=== PATIENT | female | born 1955 | race Caucasian/White ===

== ENCOUNTER 2016-05-09 08:00 | Outpatient (CLI) | payer MEDICARE, MEDICAID ==
[2016-05-09] VITALS (8 sets, daily range): BP systolic 127–140; BP diastolic 47–75; PULSE 74–83; TEMP 97.9
[~2016-05-09] VITALS: Ht 160 cm; Wt 80.9 kg
[~2016-05-09 08:00] MED LIST: AMOXICILLIN 8751 TAB PO; AMOXICILLIN/CLA1 TA1 PO; ANTI-DIARRHEAL2 MG PO; ASPIRIN 81M81 MG/TA2 PO; ASPIRIN E.C. 8181 MG PO; ATIVAN1 MG PO; CAL-CITRATE PLU1 TAB PO; CALCIJEX I1 MCG/1 ML IV; CALCIUM 600 W/V1 TAB PO; CELEXA40 MG PO; CLARITIN 1010 MG/TAB PO; COLACE 100100 MG/CAP PO; COLACE100 MG PO; DEPAKOTE ER 50500 MG PO; DEPAKOTE500 MG PO; DIOVAN320 MG PO; DULCOLAX100 MG PO; DUO-KAPS1 CAP PO; ENTOCORT EC3 MG PO; EPA-CON500 MG PO; EPO IV; EPOGEN 2,002 MU/VIA1 IV; EPOGEN3000 U/ML IJ; EPOGEN3000 U/ML IV; FERROUS GL325 MG/TA1 PO; FERROUS SU325 MG/TAB PO; FIORICET 325 MG1 TA1 PO; FOLIC ACID 11 MG/TA1 PO; FOLIC ACID800 MCG PO; IMITREX 6M6 MG/0.5 M IM; IMITREX 6M6 MG/0.5 M SQ; IMITREX25 MG PO; IMODIUM 2MG CAPS2 MG PO; KAYEXALATE15 GM/60 M PO; LEVAQUIN 5500 MG/TA1 PO; MAG-G500 MG PO; MAG-OX 400400 MG PO; MAG-OX 400400 MG/TAB PO; MAGNESIUM OXID420 MG PO; MEXILETINE150 MG PO; MEXITIL 150MG150 MG PO; MIRALAX PA17 GM/Dose PO; MIRAPEX0.25 MG PO; NAPROXEN250 MG PO; NEO SYNEPHRINE NS; NEPHROCAP PO; NEURONTIN100 MG/CAP PO; NEXIUM PO; NORCO 325 MG-51 TAB PO; NORVASC 5MG5 MG/TAB PO; PATANOL OPHTHALM5 ML OU; PHENERGAN 25 TA25 MG PO; PRIL40 PO; PRILOSEC 20MG20 MG PO; PROAIR HFA0.09 MG/AC IH; PROVENTIL0.09 MG/A1 IH; QUESTRAN LI4 GM/5 GM PO; QUESTRAN LITE 41 PKT PO; QUESTRAN4 GM/9 GM PO; REGLAN 10MG10 MG/TAB PO; RENA-VITE1 TAB PO; RENVELA800 MG PO; ROCALTROL0.5 MCG PO; SENSIPAR30 MG PO; SENSIPAR60 MG PO; TESSALON P100 MG/CAP PO; TOPROL XL 25MG25 MG PO; TOPROL XL100 MG PO; TUMS500 MG PO; TYLENOL 325MG325 MG PO; TYLENOL 500MG500 MG PO; TYLENOL EXTRA500 M1 PO; ULTRAM 50MG TAB50 MG PO; VITAMIN C500 MG PO; VITAMIN D 400400 IU PO; VITAMIN D31000 I1 PO; XANAX 0.5MG0.5 MG PO; ZANAFLEX4 M1 PO; ZOCOR 40MG40 MG PO; ZOFRAN 4MG T4 MG/TAB PO; ZOLOFT 50MG50 MG PO; [UNRECOGNIZED DRUG - CODE] PO; [UNRECOGNIZED DRUG - CODE] SQ
[2016-05-09] MEDS ORDERED: ULTRAM 50MG TAB50 MG PO (09:29)
[2016-05-09] MEDS ORDERED: [UNRECOGNIZED DRUG - CODE] PO (09:30)
[2016-05-09] MEDS ORDERED: ARANESP0.06 MG/ML SQ (09:31)
== END 2016-05-09 13:46 | disposition home or self-care (01) ==
LOC: COL.RAD 08:00
DX: N18.6 End stage renal disease (principal)
CPT/HCPCS: J2250; J3010; Q9967

== ENCOUNTER 2016-08-15 08:09 | Outpatient (CLI) | payer MEDICARE, MEDICAID ==
[~2016-08-15] VITALS: Ht 160.1 cm; Wt 79.6 kg
[2016-08-15] VITALS (13 sets, daily range): BP systolic 102–162; BP diastolic 55–104; PULSE 31–95; TEMP 97.4
[~2016-08-15 08:09] MED LIST changes: +ARANESP0.06 MG/ML SQ
[2016-08-15] MEDS ORDERED: TYLENOL W/COD1 UDTAB PO (09:06)
== END 2016-08-15 15:05 | disposition home or self-care (01) ==
LOC: EUO 08:09
DX: N18.6 End stage renal disease (principal); Z99.2 Dependence on renal dialysis
CPT/HCPCS: J2250; J3010; J7120; Q9967

== ENCOUNTER → 2016-11-07 | Outpatient (CLI) | payer MEDICARE, MEDICAID ==
[~2016-11-07] MED LIST changes: +TYLENOL W/COD1 UDTAB PO
== END ==
LOC: ZCOL.LAB 14:20
DX: Z11.2 Encounter for screening for other bacterial diseases (principal)

== ENCOUNTER 2017-02-20 09:24 | Outpatient (CLI) | payer MEDICARE, MEDICAID ==
[2017-02-20] VITALS (8 sets, daily range): BP systolic 127–153; BP diastolic 65–89; PULSE 75–84; TEMP 98.6
[~2017-02-20] VITALS: Ht 160.1 cm; Wt 76.6 kg
[2017-02-20] MEDS ORDERED: ZYRTEC5 MG PO (10:10)
[2017-02-20] MEDS ORDERED: TOPROL XL 50MG50 MG PO (10:14)
[2017-02-20] MEDS ORDERED: NORCO 325 MG-7.1 TAB PO (10:16)
[2017-02-20] MEDS ORDERED: ANTI-DIARRHEAL2 MG PO (10:17)
[2017-02-20] MEDS ORDERED: AMBIEN 5MG TABLE5 MG PO (10:17)
[2017-02-20] MEDS ORDERED: ROCALTROL0.5 MCG PO (10:17)
== END 2017-02-20 14:39 | disposition home or self-care (01) ==
LOC: COL.CAR 09:24
DX: T82.898A Other specified complication of vascular prosthetic devices, implants and grafts, initial encounter (principal); N18.6 End stage renal disease
CPT/HCPCS: C1887; J2250; J3010; Q9967

== ENCOUNTER 2017-04-15 08:50 | Outpatient (CLI) | payer MEDICARE, MEDICAID ==
[~2017-04-15] VITALS: Ht 160.2 cm; Wt 76.6 kg
[~2017-04-15 08:50] MED LIST changes: +AMBIEN 5MG TABLE5 MG PO; +NORCO 325 MG-7.1 TAB PO; +TOPROL XL 50MG50 MG PO; +ZYRTEC5 MG PO
[2017-04-15] MEDS ORDERED: PHOS LO PO (09:58)
[2017-04-15 09:59] VITALS: BP 146/83; PULSE 75; TEMP 98.2
[2017-04-15 10:59] VITALS: BP 149/70; PULSE 77
[2017-04-15 11:55] VITALS: BP 138/61; PULSE 76; TEMP 98
[2017-04-15 13:03] VITALS: BP 138/61; PULSE 79; TEMP 98
== END 2017-04-15 14:30 | disposition home or self-care (01) ==
LOC: COL.CAR 08:50
DX: T82.898A Other specified complication of vascular prosthetic devices, implants and grafts, initial encounter (principal); N18.6 End stage renal disease
CPT/HCPCS: J2250; J3010; Q9967

== ENCOUNTER 2018-12-07 17:14 | Inpatient (IN) | payer MEDICARE, MEDICAID ==
[~2018-12-07] VITALS: Ht 160 cm; Wt 78.1 kg
[~2018-12-07 17:14] MED LIST changes: +PHOS LO PO
[2018-12-07 18:12] LABS: BASO % 0.5 % (0.0-2.0); EOS # 0.1 (0.0-0.7); EOS % 1.2 % (0-4.0); GRAN # 6.1 (1.4-6.5); GRAN % 72.5 % (42.2-75.2); LYMPH # 1.5 (1.2-3.4); MEAN CELL VOLUME 106 fl (80.0-100.0); MEAN CORPUSCULAR HGB CONC 31 g/dl (33.0-37.0); MEAN PLATELET VOLUME 10.7 fl (7.4-10.4); MONO # 0.6 (0.1-0.6); MONO % 7.2 % (1.7-9.3); PLATELET COUNT 202 K/mm3 (130-400); RED BLOOD COUNT 2.72 M/mm3 (4.10-5.30); REDCELL DISTRIBUTION WIDTH-CV 14.7 % (11.5-14.5)
[2018-12-07 18:16] LABS: HEMATOCRIT 28.7 % (37.0-47.0); MEAN CORPUSCULAR HEMOGLOBIN 33 pg (27.0-31.0)
[2018-12-07 18:29] LABS: ALBUMIN 4.4 gm/dL (3.5-5.0); BILIRUBIN,TOTAL 0.8 mg/dL (0.0-1.0); C-REACTIVE PROTEIN 3.2 mg/dL (0.0-0.9); CALCIUM 8.1 mg/dL (8.4-10.2); POTASSIUM 5.5 mmol/L (3.4-5.0)
[2018-12-07 18:38] LABS: CREATININE, serum 9.33 (0.52-1.25)
[2018-12-07 18:39] LABS: TROPONIN-I 0.04 ng/mL (0.000-0.035)
[2018-12-07] MEDS ORDERED: COZAAR 25MG25 MG/TAB PO (19:08)
[2018-12-07 22:18] VITALS: BP 161/87; PULSE 83; TEMP 97.5
[2018-12-08 00:23] VITALS: BP 126/61; PULSE 89; TEMP 98.6
--- NOTE | 2018-12-08 02:29 | NUR ---
Pt to Rm 317 via cart from ER. Admitted for abdominal pain, ESRD. Pt of Dr Alvarenga. C/O feeling nausea. Has been medicated in ER x2 for nausea. INT intact R AC. Has an old fistula in upper left arm. Her current fistula is in upper left thigh. Bruit present. Dr Alvarenga notifited of pt and pt current home med list.
[2018-12-08 04:33] VITALS: BP 156/87; PULSE 83; TEMP 98.5
--- NOTE | 2018-12-08 06:17 | NUR ---
Pt had Zofran 4mg IV push and Tylenol 500mg for headache. Reports some relief obtained. Rest in bed with lights out. Call light within reach.
[2018-12-08 07:31] VITALS: BP 147/84; PULSE 82; TEMP 97.9
--- NOTE | 2018-12-08 08:16 | NUR ---
Pt assessment completed and charted. Pt laying in bed. C/O abdominal pain and nausea. No vomiting per pt. C/O dizziness, SOB and legs "feeling like jello". Educated the pt on being placed as a fall risk and using call light to get up. Fall risk precautions in place. Pt has RAC INT IV, flushes with no complications. Left thigh fistula, bruising noted. Pt stated she fell about a week ago, rt elbow bruising noted. Pt on room air, denies other needs at this time.
--- NOTE | 2018-12-08 08:47 | NUR ---
Pt down for dialysis at this time.
[2018-12-08 09:49] LABS: MEAN CELL VOLUME 105 fl (80.0-100.0); MEAN CORPUSCULAR HGB CONC 32 g/dl (33.0-37.0); MEAN PLATELET VOLUME 10.4 fl (7.4-10.4); PLATELET COUNT 181 K/mm3 (130-400); RED BLOOD COUNT 2.53 M/mm3 (4.10-5.30)
[2018-12-08 09:50] LABS: HEMATOCRIT 26.5 % (37.0-47.0); HEMOGLOBIN 8.4 g/dl (12.5-16.0); MEAN CORPUSCULAR HEMOGLOBIN 33 pg (27.0-31.0)
[2018-12-08 09:55] LABS: ALBUMIN 4.2 gm/dL (3.5-5.0); CALCIUM 8.3 mg/dL (8.4-10.2); PHOSPHOROUS 2.6 mg/dL (2.5-4.5); POTASSIUM 3.6 mmol/L (3.4-5.0)
[2018-12-08 09:57] LABS: CREATININE, serum 5.32 (0.52-1.25)
[2018-12-08 10:38] LABS: EOSINOPHIL 2 % (0-4); LYMPHOCYTE 18 % (20.0-51.0); NEUTROPHILS 72 % (42.0-75.2); PLATELET ESTIMATE NORMAL (NORMAL)
[2018-12-08] MEDS ORDERED: ESTRACE0.5 MG PO (10:49)
--- NOTE | 2018-12-08 14:43 | NUR ---
CHAYITO met with the patient to discuss discharge plan. The patient lives alone in [place]. She states that she has friend support in [facility] and that her son (Walt Ponce ph#[phone]) lives in [place] and her sister Laxmi lives in [place], [place]. She reports independence with ADLs and has a cane and walker. The patient's PCP is Dr. Christopher Perea and she receives her medications at [facility]. She reports no difficulties obtaining her meds. The patient does not have advanced directives completed, but she was interested in obtaining a form for DPOA-HC. CHAYITO provided. She states that she has two children, but that she would want to designate her son, Walt. The patient plans to return back home upon discharge. No additional needs at this time, but SW to continue to follow.
--- NOTE | 2018-12-08 15:29 | NUR ---
Pt back from procedure. Morning medications administered per MAY. Pt to start bowel prep this afternoon.
[2018-12-08 16:01] VITALS: BP 170/90; PULSE 94; TEMP 98.1
--- NOTE | 2018-12-08 17:07 | NUR ---
Pt started on bowel prep for EGD/Colonoscopy tomorrow. No concerns voiced.
[2018-12-08 20:00] VITALS: BP 154/89; PULSE 93; TEMP 98.1
--- NOTE | 2018-12-08 21:36 | NUR ---
Report received from MARLENA Yuan. Patient resting in bed. States she had drank 1 jug of her bowel prep and is working on the second one. Her bowel movements are still pretty yellow but very watery. She denies pain at this time. IV flushed. She states she is a little short of breath when she gets up to use the restroom and she feels like she is getting weaker. Instructed patient she could use her call light if she felt she was too weak to get up to the restroom on her own. Encouraged to continue to drink the bowel prep and notify nursing staff if she has any further needs. Call light within reach.
--- NOTE | 2018-12-08 23:16 | NUR ---
Patient states she is feeling a little sick from the bowel prep. PRN zofran given. Will continue to monitor.
[2018-12-09] VITALS (10 sets, daily range): BP systolic 141–186; BP diastolic 71–95; PULSE 78–87; TEMP 97.7–98.5
[2018-12-09 05:24] LABS: ARTERIAL BLD GAS O2 SATURATION 94.4 % (92-100); ARTERIAL BLD GAS TCO2 CT 22.1; ARTERIAL BLOOD GAS BASE EXCESS -2.7 (-2-2); ARTERIAL BLOOD GAS HCO3 21.1 meq/L (22-26); ARTERIAL BLOOD GAS PCO2 32.2 mmHg (35-45); ARTERIAL BLOOD GAS PO2 74.3 mmHg (80-100); ARTERIAL BLOOD GAS pH 7.43 (7.35-7.45)
--- NOTE | 2018-12-09 05:49 | NUR ---
Patient had uneventful night. Resting in bed. Continuing to work on bowel prep. BM beginning to look clearer. Encouraged to keep drinking. No further needs at this time. Call light within reach.
--- NOTE | 2018-12-09 06:52 | NUR ---
Report given to MARLENA Yuan
[2018-12-09 07:22] LABS: MEAN CELL VOLUME 108 fl (80.0-100.0); MEAN CORPUSCULAR HGB CONC 32 g/dl (33.0-37.0); MEAN PLATELET VOLUME 10.8 fl (7.4-10.4); PLATELET COUNT 192 K/mm3 (130-400); RED BLOOD COUNT 2.68 M/mm3 (4.10-5.30); REDCELL DISTRIBUTION WIDTH-CV 15.6 % (11.5-14.5)
[2018-12-09 07:24] LABS: HEMATOCRIT 28.8 % (37.0-47.0); HEMOGLOBIN 9.1 g/dl (12.5-16.0); MEAN CORPUSCULAR HEMOGLOBIN 34 pg (27.0-31.0)
[2018-12-09 07:31] LABS: ALBUMIN 4.2 gm/dL (3.5-5.0); CALCIUM 8.4 mg/dL (8.4-10.2); CREATININE, serum 6.04 (0.52-1.25); PHOSPHOROUS 3.4 mg/dL (2.5-4.5); POTASSIUM 4.7 mmol/L (3.4-5.0)
--- NOTE | 2018-12-09 08:17 | NUR ---
Pt assessment completed and charted. Pt sitting in bed. C/o of abdominal discomfort d/t bowel prep. Denies nausea at this time. Denies chest pain, dizziness, SOB, N/V/D. Pt bowel prep in process, has been NPO since midnight, consent for procedure signed and on chart. Pt has RAC INT IV that flushes with no complications, minimal dried blood under tegaderm. No other concerns voiced at this time. Call light within reach.
[2018-12-09 08:30] LABS: BAND 1 % (0-10); EOSINOPHIL 2 % (0-4); LYMPHOCYTE 19 % (20.0-51.0); NEUTROPHILS 75 % (42.0-75.2); PLATELET ESTIMATE NORMAL (NORMAL)
[2018-12-09 08:31] LABS: HYPOCHROMIA 1+
--- NOTE | 2018-12-09 10:52 | NUR ---
Pt down for procedure at this time.
--- NOTE | 2018-12-09 12:17 | NUR ---
Pt back from procedure. VSS. Pt c/o abdominal pain, rating it an 8. Lunch ordered for pt, PRN tylenol administered per MAR. No other concerns at this time.
--- NOTE | 2018-12-09 13:46 | NUR ---
Pt tolerating food well. Denies needs at this time.
--- NOTE | 2018-12-09 20:37 | NUR ---
Report received from MARLENA Yuan. Patient resting in bed. Requesting night time medications. Assessment complete. Denies pain. Left sided upper lung sounds diminished, left side lower clear, and right side clear. Assessed patient diarrhea, no longer bloody as it was earlier in the day. Patient states that when she had her EGD, the tube hit her lip and there is a small noted bump on her lower lip, right side. Denies any further needs at this time. Call light within reach.
--- NOTE | 2018-12-09 22:56 | NUR ---
Patient reports not being able to sleep. She requests another ambien. Informed the patient that she could not have another ambien. She asked what else she could have. I let her know that the only other thing she has ordered for sleep is xanax. She states she would like to try that. Administered 0.5 mg of PRN xanax.
[2018-12-10] VITALS (7 sets, daily range): BP systolic 129–179; BP diastolic 63–93; PULSE 74–81; TEMP 97.7–99.5
[2018-12-10 02:50] LABS: KAPPA FREE LIGHT CHAIN-SERUM 129.38 mg/L (()); KAPPA LAMBDA RATIO 1.67 ratio (()); LAMDA FREE LIGHT CHAIN SERUM 77.49 mg/L (())
--- NOTE | 2018-12-10 05:55 | NUR ---
Patient had uneventful night. Resting in bed. Denied pain throughout night. Has no further needs at this time. Call light within reach.
--- NOTE | 2018-12-10 06:54 | NUR ---
Report given to MARLENA Wheeler
--- NOTE | 2018-12-10 08:36 | NUR ---
PT ALERT AND ORIENTED AND EATING BREAKFAST NOW. PT GOING DOWN TO DIALYSIS THIS AM. PT DENIES PAIN OR SOB AT THIS TIME. PT REPORTS FEELING WEAK IN THE LEGS. PT IS HIGH FALL RISK AND PRECAUTIONS IN PLACE. PT REMAINS ON CONTACT PRECAUTIONS FOR HX OF MRSA. PT LEFT THIGH FISTULA AND LEFT EXTREMITY RESTRICTED. PT HAS OLD FISTULA IN LEFT UPPER ARM. PT IV INTACT NO REDNESS NOTED. PT HAS CALL LIGHT IN REACH AND WILL GO TO DIALYSIS AFTER FINISHES BRKF. PT HAS [facility] HELPING THIS AM.
[2018-12-10 10:00] LABS: MEAN CORPUSCULAR HGB CONC 33 g/dl (33.0-37.0); MEAN PLATELET VOLUME 10.5 fl (7.4-10.4); PLATELET COUNT 193 K/mm3 (130-400); RED BLOOD COUNT 2.63 M/mm3 (4.10-5.30); REDCELL DISTRIBUTION WIDTH-CV 15.6 % (11.5-14.5)
[2018-12-10 10:01] LABS: HEMATOCRIT 27.1 % (37.0-47.0); HEMOGLOBIN 8.8 g/dl (12.5-16.0); MEAN CELL VOLUME 103 fl (80.0-100.0); MEAN CORPUSCULAR HEMOGLOBIN 33 pg (27.0-31.0)
[2018-12-10 10:08] LABS: ALBUMIN 3.7 gm/dL (3.5-5.0); CALCIUM 8.3 mg/dL (8.4-10.2); PHOSPHOROUS 1.8 mg/dL (2.5-4.5); POTASSIUM 3.8 mmol/L (3.4-5.0)
[2018-12-10 10:10] LABS: CREATININE, serum 4.47 (0.52-1.25)
[2018-12-10 10:27] LABS: LYMPHOCYTE 25 % (20.0-51.0); NEUTROPHILS 68 % (42.0-75.2); NUCLEATED RED BLOOD CELL 2 (0-6); PLATELET ESTIMATE NORMAL (NORMAL)
--- NOTE | 2018-12-10 14:01 | NUR ---
Pt in room eating lunch. Call margareth curry. Reported off to primary Desiree MENDIOLA.
--- NOTE | 2018-12-10 14:03 | NUR ---
Primary nurse was assisted with [phone] patient care by [employer] student Lakshmi Mckeon and [employer] instructor Renuka Espinal RN-.
--- NOTE | 2018-12-10 15:49 | NUR ---
CHAYITO met with the patient to review discharge plan and to discuss PT's recommendation of home health. The patient reports that she would be interested in home health. CHAYITO provided the patient with Medicare.gov's list of home health agencies that serve [place]. The patient chose [facility]. CHAYITO contacted and faxed a referral to Gordo at [facility]. SW awaiting their screening.
--- NOTE | 2018-12-10 18:29 | NUR ---
Pt alert and oriented. Pt went to dialysis this am and returned after lunch. Pt tolerated dialysis well and had 2K off. Pt will have dialysis tomorrow at around 1130 per Mariya. Pt IV did not flush this afternoon well so discontinued and new IV 20gauge placed in upper RAC. Pt has call light in reach and on contact precautions.
--- NOTE | 2018-12-10 18:48 | NUR ---
report given to Tamica MENDIOLA
--- NOTE | 2018-12-10 20:55 | NUR ---
Report received from MARLENA Wheeler. Patient resting in bed. Assessment complete. Patient denies pain at this time. Vitals within normal limits. Lungs CTA. IV patent. Patient inquiring about hemorroid cream that was ordered by Dr collier. Upon checking, no cream in the omni, called house to have it brought up from pharmacy. Patient okay with waiting. Denies any further needs at this time. Call light within reach.
--- NOTE | 2018-12-10 22:45 | NUR ---
Patient requests "something else to help me sleep". PRN xanax administered at this time. Informed that hemorrhoid cream still not available. Patient stated she could wait until morning. Call light within reach.
[2018-12-11 03:22] VITALS: BP 140/71; PULSE 77; TEMP 99.1
--- NOTE | 2018-12-11 05:23 | NUR ---
Patient has been resting in bed throughout shift. Denied pain. PRN xanax given to help patient sleep per patient request. No further needs at this time. Call light within reach.
[2018-12-11 06:51] LABS: BASO % 0.6 % (0.0-2.0); EOS # 0.2 (0.0-0.7); EOS % 4.5 % (0-4.0); GRAN # 3.1 (1.4-6.5); GRAN % 59.6 % (42.2-75.2); LYMPH # 1.3 (1.2-3.4); LYMPH % 25.7 % (20.0-51.0); MEAN CELL VOLUME 107 fl (80.0-100.0); MEAN CORPUSCULAR HGB CONC 32 g/dl (33.0-37.0); MEAN PLATELET VOLUME 10.7 fl (7.4-10.4); MONO # 0.4 (0.1-0.6); MONO % 8.2 % (1.7-9.3); PLATELET COUNT 190 K/mm3 (130-400); RED BLOOD COUNT 2.59 M/mm3 (4.10-5.30); REDCELL DISTRIBUTION WIDTH-CV 15.9 % (11.5-14.5)
--- NOTE | 2018-12-11 06:53 | NUR ---
Report given to MARLENA Thurman
[2018-12-11 07:00] LABS: HEMATOCRIT 27.6 % (37.0-47.0); HEMOGLOBIN 8.7 g/dl (12.5-16.0); MEAN CORPUSCULAR HEMOGLOBIN 34 pg (27.0-31.0)
[2018-12-11 07:15] LABS: ALBUMIN 3.5 gm/dL (3.5-5.0); CALCIUM 8.4 mg/dL (8.4-10.2); PHOSPHOROUS 2.6 mg/dL (2.5-4.5); POTASSIUM 4.3 mmol/L (3.4-5.0)
[2018-12-11 07:16] LABS: CREATININE, serum 4.76 (0.52-1.25)
[2018-12-11 07:23] VITALS: BP 169/78; PULSE 76; TEMP 97.9
[2018-12-11 07:56] VITALS: BP 154/83; PULSE 80; TEMP 97.9
--- NOTE | 2018-12-11 08:00 | NUR ---
PATIENT AMBULATING INDEPENDENTLY IN THE ROOM. PATIENT IS A&OX4. VSS. BOWEL SOUNDS ACTIVE ALL FOUR QUADRANTS. PATIENT IS TOLERATING HER DIET WITHOUT ANY COMPLAINTS OF N/V. PATIENT REPORTS THAT SHE HAS BEEN HAVING DIARRHEA. PATIENT STATES THAT SHE FEELS WEAK TODAY. PATIENT STATES THAT SHE HAS SHORTNESS OF BREATH, BUT THAT IT IS NOT WORSE THAN HER NORMAL. ALL LUNG MCKENNA CLEAR UPON AUSCULTATION. PATIENT DENIES A PRODUCTIVE COUGH. RIGHT AC TO INT. POSITIVE PEDAL PULSES EQUAL BILATERALLY. AV FISTULA TO LEFT THIGH. SCABBING OVER FISTULA SITE NOTED. GOOD BRUIT AND THRILL OVER AV FISTULA SITE. CALL LIGHT WITHIN REACH. PATIENT DENIES ANY NEEDS AT THIS TIME.
--- NOTE | 2018-12-11 11:30 | NUR ---
PATIENT TAKEN TO DIALYSIS VIA WHEELCHAIR BY MEDICAL STAFF. WILL WAIT FOR PATIENT ARRIVAL BACK TO ROOM 317 POST DIALYSIS.
--- NOTE | 2018-12-11 13:43 | NUR ---
Pt is down in diallysis. Reported off to Primary MARLENA Thurman.
--- NOTE | 2018-12-11 13:56 | NUR ---
Primary nurse was assisted with [phone] patient care by [employer] student Lakshmi Mckeon and [employer] instructor Renuka Espinal RN-BC.
--- NOTE | 2018-12-11 14:30 | NUR ---
PATIENT ARRIVED BACK TO ROOM 317 VIA WHEELCHAIR FROM DIALYSIS.
--- NOTE | 2018-12-11 15:32 | NUR ---
Gordo, at [facility], reports that they are unable to accept the patient if she is not homebound and drives herself to dialysis. CHAYITO then followed up with the patient to inform. The patient reports that she does drive herself to dialysis and appointments and would plan to continue to do so upon discharge. CHAYITO then discussed outpatient PT/OT. The patient reports that she will just hold off on outpatient PT/OT right now. She states that she can get around with her cane and walker. CHAYITO informed the patient about having Dr. Alvarenga write a script for outpatient PT/OT, if she changes her mind. The patient verbalized understanding. SW to continue to follow.
[2018-12-11 15:57] VITALS: BP 157/71; PULSE 79; TEMP 98.1
--- NOTE | 2018-12-11 19:01 | NUR ---
REPORT GIVEN TO MARLENA NOLEN.
[2018-12-11 19:35] VITALS: BP 152/77; PULSE 81; TEMP 98.7
--- NOTE | 2018-12-11 20:30 | NUR ---
Initial shift assessment done- denies pain tonight, had a loose/liquid stool this morning at 0700 and no stool since then-- /,not needing prn hydralazine at this time, has been up on her own today- askeed her to call for assistance during the night- pt states that she will
--- NOTE | 2018-12-11 22:00 | NUR ---
Dr Alvarenga called - pt states she takes 10mg of Ambien at night at home not just 5 mg as ordered- additional 5 mg of Ambien given p.o
[2018-12-11 23:20] VITALS: BP 161/82; PULSE 79; TEMP 98.5
[2018-12-12] VITALS (7 sets, daily range): BP systolic 131–167; BP diastolic 69–896; PULSE 76–86; TEMP 98–99.1
--- NOTE | 2018-12-12 00:35 | NUR ---
B/P 167/84- Hydralazine prn given per order- pt states still not sleeping well, waking up every frequently, requesting snack at this time
[2018-12-12 06:29] LABS: BASO % 0.6 % (0.0-2.0); EOS # 0.3 (0.0-0.7); EOS % 5.7 % (0-4.0); GRAN # 3.3 (1.4-6.5); GRAN % 60.2 % (42.2-75.2); LYMPH # 1.3 (1.2-3.4); LYMPH % 23.3 % (20.0-51.0); MEAN CELL VOLUME 108 fl (80.0-100.0); MEAN CORPUSCULAR HGB CONC 31 g/dl (33.0-37.0); MEAN PLATELET VOLUME 10.2 fl (7.4-10.4); MONO # 0.5 (0.1-0.6); MONO % 8.9 % (1.7-9.3); PLATELET COUNT 191 K/mm3 (130-400); RED BLOOD COUNT 2.65 M/mm3 (4.10-5.30); REDCELL DISTRIBUTION WIDTH-CV 16.6 % (11.5-14.5)
--- NOTE | 2018-12-12 06:30 | NUR ---
Quiet night- had hydralazine x2 for B/P during the night- no stools this shift/no abd pain, states did not sleep much
[2018-12-12 06:42] LABS: ALBUMIN 3.5 gm/dL (3.5-5.0); CALCIUM 8.4 mg/dL (8.4-10.2); PHOSPHOROUS 2.4 mg/dL (2.5-4.5); POTASSIUM 4.3 mmol/L (3.4-5.0)
[2018-12-12 06:45] LABS: CREATININE, serum 4.25 (0.52-1.25)
[2018-12-12 07:03] LABS: HEMATOCRIT 28.5 % (37.0-47.0); HEMOGLOBIN 8.9 g/dl (12.5-16.0); MEAN CORPUSCULAR HEMOGLOBIN 34 pg (27.0-31.0)
--- NOTE | 2018-12-12 09:34 | NUR ---
Pt is awake and A/Ox4, sitting up on the side of the bed. She denies pain at this time. She is up to the restroom without assistance, steady gait. Pt had soft bowel movement, brown in color. Stool for occult sent to lab. Pt denies any other needs.
--- NOTE | 2018-12-12 13:30 | NUR ---
Pt is resting in bed, watching TV and reading book. Pt denies any pain. Denies any needs.
--- NOTE | 2018-12-12 20:30 | NUR ---
Initial shift assessment done- denies pain, states had 3 soft/loose stools on day shift today- neg for occult blood,, having a snack tonight beofre bed- no other requests- hopes to sleep better tonight.
[2018-12-13 03:37] VITALS: BP 154/73; PULSE 75; TEMP 98.4
--- NOTE | 2018-12-13 05:25 | NUR ---
Quiet night- did rest somewhat better than the previous night,, VSS, did not require Hydralazine during the night, did get Tylenol for headache
[2018-12-13 07:21] VITALS: BP 160/83; PULSE 78; TEMP 98.7
--- NOTE | 2018-12-13 08:26 | NUR ---
Pt is awake and A/Ox4, sitting up in the recliner watching TV. She denies pain or discomfort. Saline lock to right AC is free of complications. Left thigh fistula noted, free of complications. Pt is up as tolerated in room. Denies any other needs.
--- NOTE | 2018-12-13 10:46 | NUR ---
Pt is sleeping soundly in bed.
[2018-12-13 10:57] VITALS: BP 166/81; PULSE 78; TEMP 97.9
--- NOTE | 2018-12-13 11:39 | NUR ---
Pt was given PRN apresonline for sys. bp of 160. Pt sitting comfortably on the side of the bed doing a word search. Denies any other needs.
[2018-12-13 15:57] VITALS: BP 164/81; PULSE 82; TEMP 98.2
--- NOTE | 2018-12-13 17:36 | NUR ---
Pt has had an uneventful day. She states she fells like she "had a burst of energy." Denies any other needs.
[2018-12-13 19:19] VITALS: BP 172/80; PULSE 78; TEMP 98.3
--- NOTE | 2018-12-13 19:35 | NUR ---
Pt up to chair. No distress noted. Respiraitons even and unlabored. Lungs clear. Abdomen soft, nontender. BS+. RANDY fistula unuseable- no bruit/thrill. L thigh fistula with bruit/thrill and strong pulses. Pt denies pain. Blood pressure is elevated- HS blood pressure medications given. No other needs noted. Will continue to monitor.
--- NOTE | 2018-12-13 21:30 | NUR ---
Pt states she is having difficulty sleeping. PRN sleeping medication given.
--- NOTE | 2018-12-13 23:55 | NUR ---
Pt continues to c/o insomnia. Scheduled Ambien and PRN Xanax were both given previously. Pt asks for another Ambien. Pt educated that she cannot take another Ambien, as it is scheduled.
[2018-12-14 01:08] VITALS: BP 177/82; PULSE 77; TEMP 98.1
--- NOTE | 2018-12-14 01:24 | NUR ---
Pts blood pressure is elevated. PRN blood pressure medication brought to patient, but she was sleeping. When awoken, she stated "I was finally sleeping" and refused to take the medication. Will continue to monitor.
[2018-12-14 03:39] VITALS: BP 157/88; PULSE 82; TEMP 98.1
--- NOTE | 2018-12-14 05:10 | NUR ---
Pt sleeping this AM. Easily arousable. Pt is confused about time of day when awoken. She states "can you order me a turkey sandwich for supper"? Easily reoriented. Pt denies pain. Blood pressure has decreased without PRN medication administration. Pt denies needs.
[2018-12-14 06:58] VITALS: BP 162/79; PULSE 77; TEMP 97.9
--- NOTE | 2018-12-14 08:00 | NUR ---
Assessment completed, alert/oriented, vital signs stable, denies pain or discomfort, heart RRR/ distal pulses are palpable, lungs CTA/ no resp.difficulty noted, she is sititng up in chair eating breakfast, will take her to dialysis as soon as she is finished
[2018-12-14 09:20] LABS: BASO % 0.5 % (0.0-2.0); EOS # 0.3 (0.0-0.7); EOS % 4.1 % (0-4.0); GRAN # 4.3 (1.4-6.5); GRAN % 70.1 % (42.2-75.2); LYMPH # 1.1 (1.2-3.4); MEAN CELL VOLUME 104 fl (80.0-100.0); MEAN CORPUSCULAR HGB CONC 33 g/dl (33.0-37.0); MEAN PLATELET VOLUME 9.9 fl (7.4-10.4); MONO # 0.4 (0.1-0.6); MONO % 6.3 % (1.7-9.3); PLATELET COUNT 182 K/mm3 (130-400); RED BLOOD COUNT 2.59 M/mm3 (4.10-5.30); REDCELL DISTRIBUTION WIDTH-CV 17.2 % (11.5-14.5)
[2018-12-14 09:21] LABS: HEMOGLOBIN 8.8 g/dl (12.5-16.0); MEAN CORPUSCULAR HEMOGLOBIN 34 pg (27.0-31.0)
[2018-12-14 09:29] LABS: ALBUMIN 3.9 gm/dL (3.5-5.0); CALCIUM 9.1 mg/dL (8.4-10.2); CREATININE, serum 3.97 (0.52-1.25); POTASSIUM 4.2 mmol/L (3.4-5.0)
[2018-12-14 09:39] LABS: PHOSPHOROUS 2.2 mg/dL (2.5-4.5)
[2018-12-14 12:05] LABS: PROTHROMBIN TIME 11.7 SECONDS (9.7-12.8)
[2018-12-14 12:32] VITALS: BP 179/76; PULSE 76; TEMP 98.2
--- NOTE | 2018-12-14 14:01 | NUR ---
CHAYITO met with the patient to check-in after the weekend. The patient reports that she is doing good and that the weekend went good, but boring. She states that Dr. Alvarenga would like to keep her for a couple more days. The patient states that she still plans to return back home upon discharge and drive herself to dialysis. The patient has Medicaid as a secondary insurance. CHAYITO educated the patient on transportation services through Medicaid. The patient reports that she already utilizes these services for when she has appointments in [facility]. CHAYITO then received a phone call from Patrizia at [facility]. Patrizia reports that they can accept the patient under her Medicaid and that Medicaid does not have the homebound rule. CHAYITO informed the patient of this. The patient would like to pursue with going home with [facility] upon discharge. CHAYITO to continue to follow.
[2018-12-14 15:45] VITALS: BP 185/84; PULSE 91; TEMP 98.3
[2018-12-14 20:04] VITALS: BP 146/79; PULSE 86; TEMP 98.1
--- NOTE | 2018-12-14 21:35 | NUR ---
Report received from MARLENA Braden. Patient resting in bed. Assessment complete. Alert and oriented. Denies pain. Lungs CTA. Pulses strong. Bowels active. Patient requests strawberry ice cream. Denies any further needs at this time. Call light within reach.
--- NOTE | 2018-12-14 23:04 | NUR ---
Patient requests something to help her sleep. PRN xanax given.
[2018-12-15 01:28] VITALS: BP 147/80; PULSE 80; TEMP 98.1
--- NOTE | 2018-12-15 01:52 | NUR ---
Shift assessment charted at this time. Completed at 2200.
[2018-12-15 03:27] VITALS: BP 160/80; PULSE 88; TEMP 98.4
--- NOTE | 2018-12-15 06:04 | NUR ---
Patient is resting in bed. Patient requested one PRN xanax to assist her with sleeping. Denied pain. Call light within reach.
[2018-12-15 06:30] LABS: BASO % 0.7 % (0.0-2.0); EOS # 0.2 (0.0-0.7); EOS % 5.1 % (0-4.0); GRAN # 2.4 (1.4-6.5); GRAN % 56.4 % (42.2-75.2); LYMPH # 1.2 (1.2-3.4); LYMPH % 27.3 % (20.0-51.0); MEAN CELL VOLUME 108 fl (80.0-100.0); MEAN CORPUSCULAR HGB CONC 32 g/dl (33.0-37.0); MEAN PLATELET VOLUME 10.2 fl (7.4-10.4); MONO # 0.4 (0.1-0.6); PLATELET COUNT 156 K/mm3 (130-400); RED BLOOD COUNT 2.53 M/mm3 (4.10-5.30); REDCELL DISTRIBUTION WIDTH-CV 17.8 % (11.5-14.5)
[2018-12-15 06:49] LABS: ALBUMIN 3.6 gm/dL (3.5-5.0); PHOSPHOROUS 3.6 mg/dL (2.5-4.5); POTASSIUM 4.9 mmol/L (3.4-5.0)
[2018-12-15 06:50] LABS: CREATININE, serum 5.23 (0.52-1.25)
--- NOTE | 2018-12-15 07:02 | NUR ---
Report given to MARLENA Anders
[2018-12-15 07:04] LABS: HEMATOCRIT 27.3 % (37.0-47.0); HEMOGLOBIN 8.6 g/dl (12.5-16.0); MEAN CORPUSCULAR HEMOGLOBIN 34 pg (27.0-31.0)
[2018-12-15 08:18] VITALS: BP 168/87; PULSE 76; TEMP 98.2
--- NOTE | 2018-12-15 08:25 | NUR ---
Pt is awake and A/Ox4, sitting up in the recliner working on a word search. Pt denies pain or discomfort. Pt does report having loose stools x3 this AM, requested PRN imodium which was given. Pts sys. blood pressure is 166 this AM. Not within 4 hour time frame for PRN apresoline. Pt up as tolerated in room. Denies any other needs. Will monitor.
[2018-12-15] MEDS ORDERED: CIPRO 500MG TA500 MG PO (11:05)
[2018-12-15] MEDS ORDERED: FLAGYL500 MG PO (11:05)
[2018-12-15] MEDS ORDERED: TOPROL XL100 MG PO (11:06)
[2018-12-15] MEDS ORDERED: COZAAR100 MG PO (11:07)
[2018-12-15 11:13] VITALS: BP 154/83; PULSE 78; TEMP 98.7
--- NOTE | 2018-12-15 11:46 | NUR ---
Toshia, RN with Dr. Alvarenga, informed CHAYITO that the patient is not wanting to do home health anymore. CHAYITO then followed up with the patient to review this. The patient confirmed the above information. She states that she gets around just fine and is not interested in home health at this time anymore. CHAYITO contacted and updated Lisa at [facility]. The patient is to discharge back home today, 12/15. Transportation to be provided by a friend. CHAYITO presented and explained the IM form to the patient. The patient verbalized understanding, signed, and she was provided a copy. No additional needs at this time.
--- NOTE | 2018-12-15 13:15 | NUR ---
Pt was discharged home from the hospital. All discharge instructions and paperwork was reviewed with pt who expressed understanding and had no questions. New prescriptions sent to pharm. Home meds returned to pt from pharmacy. Saline lock removed, catheter tip intact. Pt was escorted out of facility by staff.
== END 2018-12-15 13:18 | disposition home or self-care (01) | DRG 393 ==
LOC: COL.ER 17:14 → MEDICAL 20:13
PROVIDERS: Internal Medicine Gastroenterology; Internal Medicine Interventional Cardiology; ADMIT Emergency Medicine
PROC: 5A1D70Z Performance of Urinary Filtration, Intermittent, Less than 6 Hours Per Day (ICD-10-PCS; principal; 2018-12-08)
PROC: 0DBK8ZX Excision of Ascending Colon, Via Natural or Artificial Opening Endoscopic, Diagnostic (ICD-10-PCS; 2018-12-09)
PROC: 0DBM8ZZ Excision of Descending Colon, Via Natural or Artificial Opening Endoscopic (ICD-10-PCS; 2018-12-09)
PROC: 0DBN8ZX Excision of Sigmoid Colon, Via Natural or Artificial Opening Endoscopic, Diagnostic (ICD-10-PCS; 2018-12-09)
PROC: 0DB68ZX Excision of Stomach, Via Natural or Artificial Opening Endoscopic, Diagnostic (ICD-10-PCS; 2018-12-09 13:30)
DX: K55.9 Vascular disorder of intestine, unspecified (principal); K25.4 Chronic or unspecified gastric ulcer with hemorrhage; N18.6 End stage renal disease; I50.21 Acute systolic (congestive) heart failure; I13.2 Hypertensive heart and chronic kidney disease with heart failure and with stage 5 chronic kidney disease, or end stage renal disease; Z94.0 Kidney transplant status; N25.81 Secondary hyperparathyroidism of renal origin; K57.32 Diverticulitis of large intestine without perforation or abscess without bleeding; Z99.2 Dependence on renal dialysis; Z90.49 Acquired absence of other specified parts of digestive tract; Z90.710 Acquired absence of both cervix and uterus; E87.70 Fluid overload, unspecified; Z95.810 Presence of automatic (implantable) cardiac defibrillator; J44.9 Chronic obstructive pulmonary disease, unspecified; Z88.5 Allergy status to narcotic agent; Z88.1 Allergy status to other antibiotic agents; G40.909 Epilepsy, unspecified, not intractable, without status epilepticus; F32.9 Major depressive disorder, single episode, unspecified; I25.10 Atherosclerotic heart disease of native coronary artery without angina pectoris; I15.9 Secondary hypertension, unspecified; Z79.82 Long term (current) use of aspirin; Z87.891 Personal history of nicotine dependence; I27.20 Pulmonary hypertension, unspecified; I08.1 Rheumatic disorders of both mitral and tricuspid valves; D50.0 Iron deficiency anemia secondary to blood loss (chronic); D63.1 Anemia in chronic kidney disease; K44.9 Diaphragmatic hernia without obstruction or gangrene; K31.819 Angiodysplasia of stomach and duodenum without bleeding; K63.5 Polyp of colon; K64.2 Third degree hemorrhoids
CPT/HCPCS: J0744; J0882; J1644; J2405; J2550; J2704; J2916; J7030; Q9967

== ENCOUNTER 2018-12-31 11:42 | Inpatient (IN) | payer MEDICARE, MEDICAID ==
[~2018-12-31] VITALS: Ht 160 cm; Wt 77.9 kg
[~2018-12-31 11:42] MED LIST changes: +CIPRO 500MG TA500 MG PO; +COZAAR 25MG25 MG/TAB PO; +COZAAR100 MG PO; +ESTRACE0.5 MG PO; +FLAGYL500 MG PO
[2018-12-31 13:05] LABS: BASO % 0.7 % (0.0-2.0); EOS # 0.2 (0.0-0.7); EOS % 3.3 % (0-4.0); GRAN # 2.8 (1.4-6.5); GRAN % 62.2 % (42.2-75.2); HEMOGLOBIN 10.2 g/dl (12.5-16.0); LYMPH % 22.2 % (20.0-51.0); MEAN CELL VOLUME 110 fl (80.0-100.0); MEAN CORPUSCULAR HEMOGLOBIN 34 pg (27.0-31.0); MEAN CORPUSCULAR HGB CONC 31 g/dl (33.0-37.0); MEAN PLATELET VOLUME 10.4 fl (7.4-10.4); MONO # 0.5 (0.1-0.6); MONO % 11.2 % (1.7-9.3); PLATELET COUNT 218 K/mm3 (130-400); RED BLOOD COUNT 3.02 M/mm3 (4.10-5.30); REDCELL DISTRIBUTION WIDTH-CV 16.2 % (11.5-14.5)
[2018-12-31 13:06] LABS: HEMATOCRIT 33.1 % (37.0-47.0)
[2018-12-31 13:20] LABS: ALBUMIN 4.1 gm/dL (3.5-5.0); CALCIUM 8.6 mg/dL (8.4-10.2); PHOSPHOROUS 3.5 mg/dL (2.5-4.5); POTASSIUM 4.4 mmol/L (3.4-5.0); TOTAL PROTEIN 6.6 gm/dL (6.4-8.2)
[2018-12-31 13:27] LABS: CREATININE, serum 5.63 (0.52-1.25)
[2018-12-31 18:01] VITALS: BP 169/81; PULSE 75; TEMP 98
[2018-12-31] MEDS ORDERED: RELPAX 40MG TAB40 MG PO (19:13)
[2018-12-31] MEDS ORDERED: TOPROL XL 50MG50 MG PO (19:24)
[2018-12-31] MEDS ORDERED: PHENERGAN 25 TA25 MG PO (19:27)
[2018-12-31] MEDS ORDERED: COZAAR 25MG25 MG/TAB PO (19:30)
[2018-12-31] MEDS ORDERED: ONE DAILY MULTI1 TA1 PO (19:31)
--- NOTE | 2018-12-31 19:33 | NUR ---
PT ARRIVED TO MEDICAL FLOOR VIA WHEELCHAIR. CAME UP WITH OWN MEDICATIONS. 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 C/O HEADACHE, 12/24. RELIEVED WITH TYLENOL THAT WAS GIVEN IN THE ER. C/O ABDOMINAL PAIN, 12/24, AND DIARRHEA. IV ANTIBIOTICS STARTED. PHOSLO GIVEN ORDERED BY PROVIDER. MEAL TRAY GIVEN TO PT. AMBULATES WITH CANE. CALL LIGHT WITHIN REACH. REPORT GIVEN TO MARLENA PRICE.
--- NOTE | 2018-12-31 19:37 | NUR ---
Shift assessment complete. A&O x4. States her abdomen a little tender. Still having episodes of diarrhea. Abx infusing at this time in R AC. Fistula intact left thigh. Requesting ailyn cortez. Denies any needs at this time. Call light in reach. Pillow placed under right arm to help hold arm straight while abx continue.
[2018-12-31 20:00] VITALS: BP 182/85; PULSE 76; TEMP 98.4
[2018-12-31 22:29] VITALS: BP 135/87; PULSE 81; TEMP 98.3
--- NOTE | 2019-01-01 01:12 | NUR ---
Pt had requested Benadryl for itching. Called Dr Alvarenga for order. To pt room with Benadryl at 0030 and pt asleep with snoring resp. Did not wake pt. Call light within pt reach.
[2019-01-01 03:44] VITALS: BP 167/75; PULSE 78; TEMP 97.5
--- NOTE | 2019-01-01 03:57 | NUR ---
VS monitored. Within normal limits. Denies any pain, SOA. Call light within reach.
[2019-01-01 07:42] VITALS: BP 173/93; PULSE 79; TEMP 97.4
--- NOTE | 2019-01-01 08:36 | NUR ---
Pt had an uneventful shift. Only 1 small, loose BM. Given Loperimide x1. Request for Benadryl 50mg at bedtime, but was sleeping when I returned to her room and slept until 3, No other c/o during this shift. Call light within reach. Report given to MARLENA Sutton.
--- NOTE | 2019-01-01 09:47 | NUR ---
CHAYITO met with the patient to discuss discharge plan. The patient lives alone in [place]. She states that she has good friend support in [facility] and that her son, Walt Ponce (ph#[phone]), lives in [place]. She reports independence with ADLs and has a cane and walker. The patient's PCP is Dr. Christopher Perea and she receives her medications from [facility]. She reports no difficulties obtaining her meds. The patient does not have advanced directives, but she states that she is working on getting them completed with her niece. She states that she plans to designate her niece, Cailin Trammell. The patient plans to return home upon discharge. No anticipated needs.
--- NOTE | 2019-01-01 09:57 | NUR ---
Initial visit; Patient thanked Perpetual Inventory Clerk for looking in on her, offering prayer and God's blessings.
[2019-01-01 10:54] LABS: BASO % 0.7 % (0.0-2.0); EOS # 0.2 (0.0-0.7); EOS % 4.7 % (0-4.0); GRAN # 3.1 (1.4-6.5); GRAN % 69.4 % (42.2-75.2); LYMPH # 0.8 (1.2-3.4); LYMPH % 16.7 % (20.0-51.0); MEAN CELL VOLUME 107 fl (80.0-100.0); MEAN CORPUSCULAR HGB CONC 32 g/dl (33.0-37.0); MEAN PLATELET VOLUME 10.2 fl (7.4-10.4); MONO # 0.4 (0.1-0.6); MONO % 7.8 % (1.7-9.3); PLATELET COUNT 195 K/mm3 (130-400); RED BLOOD COUNT 2.94 M/mm3 (4.10-5.30); REDCELL DISTRIBUTION WIDTH-CV 15.9 % (11.5-14.5)
[2019-01-01 10:55] LABS: HEMATOCRIT 31.3 % (37.0-47.0); HEMOGLOBIN 9.9 g/dl (12.5-16.0); MEAN CORPUSCULAR HEMOGLOBIN 34 pg (27.0-31.0)
[2019-01-01 11:01] LABS: ALBUMIN 3.9 gm/dL (3.5-5.0); CALCIUM 8.4 mg/dL (8.4-10.2); PHOSPHOROUS 2.8 mg/dL (2.5-4.5); POTASSIUM 4.1 mmol/L (3.4-5.0)
[2019-01-01 11:02] LABS: CREATININE, serum 4.27 (0.52-1.25)
--- NOTE | 2019-01-01 13:54 | NUR ---
Primary nurse was assisted with [phone] patient care by [employer] student Taylor Eddy and [employer] instructor Renuka Espinal RN-.
[2019-01-01 16:57] VITALS: BP 152/75; PULSE 79; TEMP 97.9
--- NOTE | 2019-01-01 19:44 | NUR ---
PT HAD UNEVENTFUL DAY. PLEASENT AND COOPERATIVE WITH CARES. NO ISSUES OR CONSERNS VOICED THIS SHIFT.
[2019-01-01 20:10] VITALS: BP 155/78; PULSE 79; TEMP 98.8
--- NOTE | 2019-01-01 21:56 | NUR ---
Patient doing very well. A/ox4 with VSS. Denies pain at this time. L thigh fistula palpable and auscultated. Pt ambulatory. Denies needs at this time. Call light within reach, will continue to monitor
[2019-01-01 23:42] VITALS: BP 174/89; PULSE 83; TEMP 98.5
[2019-01-02 02:57] VITALS: BP 154/90; PULSE 72; TEMP 98
--- NOTE | 2019-01-02 04:08 | NUR ---
Patient resting in room. No c/o abdominal pain or diarrhea at this time. Patient states she feels good. Call light within reach, will continue to monitor.
[2019-01-02 06:31] LABS: ALBUMIN 3.6 gm/dL (3.5-5.0); CALCIUM 8.7 mg/dL (8.4-10.2); CREATININE, serum 4.22 (0.52-1.25); PHOSPHOROUS 3.8 mg/dL (2.5-4.5); POTASSIUM 5.4 mmol/L (3.4-5.0)
[2019-01-02 06:37] LABS: BASO % 0.7 % (0.0-2.0); EOS # 0.2 (0.0-0.7); EOS % 4.9 % (0-4.0); GRAN # 2.4 (1.4-6.5); GRAN % 55.8 % (42.2-75.2); HEMATOCRIT 32.6 % (37.0-47.0); HEMOGLOBIN 10.2 g/dl (12.5-16.0); LYMPH # 1.2 (1.2-3.4); LYMPH % 28.1 % (20.0-51.0); MEAN CELL VOLUME 107 fl (80.0-100.0); MEAN CORPUSCULAR HEMOGLOBIN 33 pg (27.0-31.0); MEAN CORPUSCULAR HGB CONC 31 g/dl (33.0-37.0); MEAN PLATELET VOLUME 10.7 fl (7.4-10.4); MONO # 0.4 (0.1-0.6); MONO % 10.3 % (1.7-9.3); PLATELET COUNT 164 K/mm3 (130-400); RED BLOOD COUNT 3.06 M/mm3 (4.10-5.30); REDCELL DISTRIBUTION WIDTH-CV 15.8 % (11.5-14.5)
--- NOTE | 2019-01-02 08:00 | NUR ---
Patient resting in bedside recliner finishing breakfast at this time. Patient is alert and oriented, answers questions appropriately. Patient states that she had a bowel movement this morning and it was soft, but not loose. Patient does complain of some nausea, states she doesn't need anything for it at the moment, will let nursing know if this changes. Patient denies pain or needs at this time, call light within reach.
[2019-01-02 08:33] VITALS: BP 161/87; PULSE 76; TEMP 97.9
--- NOTE | 2019-01-02 10:11 | NUR ---
Visited, listened, and provided spiritual care.
[2019-01-02 11:06] VITALS: BP 164/94; PULSE 78; TEMP 97.8
[2019-01-02 15:31] VITALS: BP 150/91; PULSE 81; TEMP 98.3
--- NOTE | 2019-01-02 18:29 | NUR ---
Patient eating dinner at this time. Patient denies pain or needs at this time, denies further episodes of nausea or diarrhea.
[2019-01-02 20:35] VITALS: BP 154/87; PULSE 85; TEMP 98.2
--- NOTE | 2019-01-02 21:10 | NUR ---
Pt doing well. Alert/oriented. VSS. IV int to R AC. Does complain of some mild abdominal cramping to middle of abdomen. Rates it about a 3. Does state she is having formed stools. Denies any other needs at this time. Call light within reach, will continue to monitor.
--- NOTE | 2019-01-02 22:21 | NUR ---
Pt states she passed gas and her stomach pain has resolved. Will continue to monitor
[2019-01-03] VITALS (8 sets, daily range): BP systolic 148–180; BP diastolic 79–102; PULSE 76–83; TEMP 97.1–98.1
[2019-01-03 06:52] LABS: BASO # 0.1 (0.0-0.2); BASO % 1.2 % (0.0-2.0); EOS # 0.2 (0.0-0.7); GRAN # 2.9 (1.4-6.5); GRAN % 59.2 % (42.2-75.2); LYMPH # 1.3 (1.2-3.4); LYMPH % 25.7 % (20.0-51.0); MEAN CELL VOLUME 106 fl (80.0-100.0); MEAN CORPUSCULAR HEMOGLOBIN 33 pg (27.0-31.0); MEAN CORPUSCULAR HGB CONC 31 g/dl (33.0-37.0); MEAN PLATELET VOLUME 10.8 fl (7.4-10.4); MONO # 0.5 (0.1-0.6); MONO % 9.5 % (1.7-9.3); PLATELET COUNT 171 K/mm3 (130-400); RED BLOOD COUNT 3.04 M/mm3 (4.10-5.30); REDCELL DISTRIBUTION WIDTH-CV 15.6 % (11.5-14.5)
--- NOTE | 2019-01-03 07:00 | NUR ---
Report received from MARLENA Samuel. PT in bed sleeping soundly, will continue to monitor.
[2019-01-03 07:03] LABS: ALBUMIN 3.8 gm/dL (3.5-5.0); CALCIUM 8.7 mg/dL (8.4-10.2); PHOSPHOROUS 4.1 mg/dL (2.5-4.5); POTASSIUM 5.2 mmol/L (3.4-5.0)
[2019-01-03 07:08] LABS: CREATININE, serum 6.25 (0.52-1.25)
[2019-01-03 07:19] LABS: HEMATOCRIT 32.3 % (37.0-47.0)
--- NOTE | 2019-01-03 09:48 | NUR ---
Assessment charted. Pt resting in chair at side of bed after getting up with SURVEY DATA TECHNICIAN, feeling very dizzy today and weak. Will report to Dr. Alvarenga when he arrives. Denies pain. INT to R A/C infiltrated, will restart a new INT when finsihed with breakfast. Pt doing well otherwise. L thigh AV fistula looks good with no dressing. RANDY AV no thrill or bruit. Will continue to monitor.\
--- NOTE | 2019-01-03 18:15 | NUR ---
Pt continues to feel poorly tonight, tired and sleeping most of the time except when up to bathroom and eating. Denies pain. Hypertensive, despite PRN meds given. Will call Bed[facility] with update on meds and continue to monitor until besdide shift report to nightshift nruse who will resume care.
--- NOTE | 2019-01-03 19:45 | NUR ---
Patient up in chair. Normal saline running at 30mL/hr, iv site in the left AC. Moran cathetar in place. Patient has been drinking gaterade. This nurse witnessed one episode of the jerking during assessment.
--- NOTE | 2019-01-03 20:00 | NUR ---
Patient is alert and orient. No complaints of headache vision changes. Paitent does have an "upset stomach, that has hurt all day." Patient denies needs at this time.
[2019-01-04 00:36] VITALS: BP 141/87; PULSE 85; TEMP 98
[2019-01-04 04:31] VITALS: BP 155/85; PULSE 91; TEMP 97.5
[2019-01-04 07:13] VITALS: BP 180/101; PULSE 81; TEMP 97.3
--- NOTE | 2019-01-04 09:03 | NUR ---
Pt is awake and A/Ox4, she denies pain but states she does have some abdominal cramping. Pt reports loose stools x2 since 0400, small amount. Given PRN imodium upon request. Pt b/p high this AM, given PRN hydralizine. Saline lock to right upper arm is free of complications. Left thigh fistula noted. Pt is up as tolerated in room. Denies any other needs.
[2019-01-04 11:10] VITALS: BP 156/93; PULSE 78; TEMP 97.5
--- NOTE | 2019-01-04 12:33 | NUR ---
Pt to dialysis at this time
[2019-01-04 12:52] LABS: BASO % 1.2 % (0.0-2.0); EOS # 0.2 (0.0-0.7); EOS % 4.5 % (0-4.0); GRAN # 1.8 (1.4-6.5); GRAN % 55.2 % (42.2-75.2); LYMPH % 30.9 % (20.0-51.0); MEAN CELL VOLUME 104 fl (80.0-100.0); MEAN CORPUSCULAR HGB CONC 32 g/dl (33.0-37.0); MEAN PLATELET VOLUME 10.5 fl (7.4-10.4); MONO # 0.3 (0.1-0.6); MONO % 7.9 % (1.7-9.3); PLATELET COUNT 162 K/mm3 (130-400); RED BLOOD COUNT 2.94 M/mm3 (4.10-5.30); REDCELL DISTRIBUTION WIDTH-CV 15.5 % (11.5-14.5)
[2019-01-04 13:00] LABS: HEMATOCRIT 30.7 % (37.0-47.0); HEMOGLOBIN 9.7 g/dl (12.5-16.0); MEAN CORPUSCULAR HEMOGLOBIN 33 pg (27.0-31.0)
[2019-01-04 13:01] LABS: ALBUMIN 3.7 gm/dL (3.5-5.0); CALCIUM 8.7 mg/dL (8.4-10.2); PHOSPHOROUS 3.6 mg/dL (2.5-4.5); POTASSIUM 4.8 mmol/L (3.4-5.0)
[2019-01-04 13:08] LABS: CREATININE, serum 7.22 (0.52-1.25)
[2019-01-04 17:10] VITALS: BP 178/105; PULSE 77
--- NOTE | 2019-01-04 18:30 | NUR ---
Pt has had an overall uneventful shift. Pt denies any loose stools since PRN imodium was given earlier in the shift. Denies other needs.
[2019-01-04 20:16] VITALS: BP 151/78; PULSE 79; TEMP 98.2
--- NOTE | 2019-01-04 21:03 | NUR ---
Pt up in chair watching tv and eating nigel crackers and p. butter. Voices no c/o at this time. INT in upper right arm flushed without difficulty. Denies pain, SOA. Call light within reach. Benadryl given per pt request for sleep.
[2019-01-05 00:19] VITALS: BP 146/74; PULSE 78; TEMP 98.4
[2019-01-05 04:41] VITALS: BP 160/88; PULSE 79; TEMP 98.2
--- NOTE | 2019-01-05 07:30 | NUR ---
Pt up ad charlene in room. Voices no c/o pain, SOA. INT remains intact upper right arm. End of shift reprort given to Tequila RN's.
[2019-01-05 07:31] VITALS: BP 153/88; PULSE 76; TEMP 98.4
[2019-01-05 07:55] LABS: BASO # 0.1 (0.0-0.2); BASO % 1.3 % (0.0-2.0); EOS # 0.2 (0.0-0.7); EOS % 3.6 % (0-4.0); GRAN # 3.2 (1.4-6.5); HEMOGLOBIN 10.4 g/dl (12.5-16.0); LYMPH # 1.3 (1.2-3.4); LYMPH % 23.9 % (20.0-51.0); MEAN CELL VOLUME 106 fl (80.0-100.0); MEAN CORPUSCULAR HEMOGLOBIN 33 pg (27.0-31.0); MEAN CORPUSCULAR HGB CONC 31 g/dl (33.0-37.0); MEAN PLATELET VOLUME 11.1 fl (7.4-10.4); MONO # 0.5 (0.1-0.6); MONO % 9.6 % (1.7-9.3); PLATELET COUNT 198 K/mm3 (130-400); RED BLOOD COUNT 3.18 M/mm3 (4.10-5.30); REDCELL DISTRIBUTION WIDTH-CV 15.6 % (11.5-14.5)
[2019-01-05 08:11] LABS: HEMATOCRIT 33.7 % (37.0-47.0)
[2019-01-05 08:16] LABS: ALBUMIN 4.1 gm/dL (3.5-5.0); POTASSIUM 5.2 mmol/L (3.4-5.0)
[2019-01-05 08:17] LABS: CREATININE, serum 5.37 (0.52-1.25)
--- NOTE | 2019-01-05 11:36 | NUR ---
Patient assessment completed. Sitting in chair at this time. Int IV in right upper arm is intact with no redness. She c/o pain in her abdominal area in mid-umbilical region rated 5/10. Bowel sounds present, passing gas. Fistula in left upper thigh. A& O x 4. Call light within reach.
[2019-01-05 11:55] VITALS: BP 149/87; PULSE 74; TEMP 98.5
--- NOTE | 2019-01-05 16:03 | NUR ---
Patient signed out AMA and left via wheelchair with assistance from nursing staff. All personal belongings were sent with patient. A message was left with Dr. Anderson notifying him of patient leaving AMA. She stated she'd been in the hospital for 3 weeks between here twice and once in [facility] and had not gotten any answers on her medical issues. She was very frustrated with Dr. Anderson for not giving her any answers and said there was no reason for her to still be here. Patient said she wasn't unhappy with nursing staff, just with the doctor. She said she had tried to contact him this afternoon, and he was in clinic.
== END 2019-01-05 15:40 | disposition left against medical advice (07) | DRG 391 ==
LOC: COL.ER 11:42 → MEDICAL 15:14
PROVIDERS: Emergency Medicine; ADMIT Internal Medicine Nephrology
PROC: 5A1D70Z Performance of Urinary Filtration, Intermittent, Less than 6 Hours Per Day (ICD-10-PCS; principal; 2019-01-01)
DX: K52.9 Noninfective gastroenteritis and colitis, unspecified (principal); N18.6 End stage renal disease; I13.2 Hypertensive heart and chronic kidney disease with heart failure and with stage 5 chronic kidney disease, or end stage renal disease; Z53.29 Procedure and treatment not carried out because of patient's decision for other reasons; K44.9 Diaphragmatic hernia without obstruction or gangrene; I50.9 Heart failure, unspecified; Z99.2 Dependence on renal dialysis; D63.1 Anemia in chronic kidney disease; K64.5 Perianal venous thrombosis; K63.5 Polyp of colon
CPT/HCPCS: J0744; J2405; J7030; Q9967

== ENCOUNTER 2019-02-09 09:56 | Outpatient (CLI) | payer MEDICARE, MEDICAID ==
[~2019-02-09] VITALS: Ht 160 cm; Wt 77.5 kg
[2019-02-09] VITALS (8 sets, daily range): BP systolic 146–169; BP diastolic 89–103; PULSE 87–93; TEMP 98.1
[~2019-02-09 09:56] MED LIST changes: +AMBIEN 10MG10 MG PO; -AMBIEN 5MG TABLE5 MG PO; +ONE DAILY MULTI1 TA1 PO; +RELPAX 40MG TAB40 MG PO; +ZOLOFT 100MG100 MG PO
[2019-02-09] MEDS ORDERED: NORVASC 5MG5 MG/TAB PO (10:34)
--- NOTE | 2019-02-09 14:39 | NUR ---
SEE MERGE DOCUMENTATION FOR MEDICATION ADMINISTRATION TIMES AND INTRA/POST PROCEDURE SEDATION ASSESSMENTS.
--- NOTE | 2019-02-09 15:50 | NUR ---
Back from laborer heading, report from Eliazar MENDIOLA. Left thight fistula bandaid CD&I. VSS.
--- NOTE | 2019-02-09 17:00 | NUR ---
Discharge instructions given. IV had been taken out in [employer]. Transferred to private car by [facility]
== END 2019-02-09 17:26 | disposition home or self-care (01) ==
LOC: COL.CAR 09:56
DX: T82.898A Other specified complication of vascular prosthetic devices, implants and grafts, initial encounter (principal); Z90.10 Acquired absence of unspecified breast and nipple; Z85.828 Personal history of other malignant neoplasm of skin; Z86.14 Personal history of Methicillin resistant Staphylococcus aureus infection; Z95.810 Presence of automatic (implantable) cardiac defibrillator; Z91.5 Personal history of self-harm; Z88.5 Allergy status to narcotic agent; Z88.6 Allergy status to analgesic agent; Z88.1 Allergy status to other antibiotic agents; Z87.891 Personal history of nicotine dependence
CPT/HCPCS: J1644; J3010; Q9967

== ENCOUNTER 2019-05-13 10:02 | Outpatient (CLI) | payer MEDICARE, MEDICAID ==
[~2019-05-13] VITALS: Ht 160.1 cm; Wt 73.0 kg
[2019-05-13] VITALS (8 sets, daily range): BP systolic 159–170; BP diastolic 84–95; PULSE 79–85; TEMP 98.3
[2019-05-13] MEDS ORDERED: TYLENOL 325MG325 MG PO (11:16)
[2019-05-13] MEDS ORDERED: ZYRTEC5 MG PO (11:17)
[2019-05-13] MEDS ORDERED: ZOFRAN 4MG T4 MG/TAB PO (11:17)
[2019-05-13] MEDS ORDERED: NORVASC 10MG10 MG PO (11:20)
[2019-05-13] MEDS ORDERED: LOMOTIL 0.025 M1 TAB PO (11:21)
--- NOTE | 2019-05-13 12:39 | NUR ---
SEE MERGE FOR MEDICATION ADMINISTRATION TIMES AND INTRA AND POST SEDATION ASSESSMENTS.
--- NOTE | 2019-05-13 14:00 | NUR ---
pt arrived via bed from laborer steel handling, awake and alert. Hand Binder Stripper also in room, no c/o. bandaid to thight on left side is clean and dry. call light in reach, sips on water
--- NOTE | 2019-05-13 14:45 | NUR ---
Pt watches tv, no c/o, Dr Cruz into see pt
--- NOTE | 2019-05-13 15:30 | NUR ---
pt sits on side of bed eats snack. site remains unchanged. IV d'cd intact
--- NOTE | 2019-05-13 15:45 | NUR ---
reviewed discharge inst. with pt and care provider for transport. verbal understanding. pt up in room dressed, up to b/r, tolerated well. discharged at 1600 via w/c to car
== END 2019-05-13 16:07 | disposition home or self-care (01) ==
LOC: COL.CAR 10:02
DX: T82.898A Other specified complication of vascular prosthetic devices, implants and grafts, initial encounter (principal); I12.0 Hypertensive chronic kidney disease with stage 5 chronic kidney disease or end stage renal disease; N18.6 End stage renal disease; Z99.2 Dependence on renal dialysis; Z88.5 Allergy status to narcotic agent; Z88.6 Allergy status to analgesic agent; Z88.8 Allergy status to other drugs, medicaments and biological substances; Z90.12 Acquired absence of left breast and nipple; Z85.828 Personal history of other malignant neoplasm of skin; Z86.14 Personal history of Methicillin resistant Staphylococcus aureus infection; Z87.891 Personal history of nicotine dependence; Z79.52 Long term (current) use of systemic steroids
CPT/HCPCS: J1644; J2250; J3010; Q9967

== ENCOUNTER 2019-11-03 05:45 | Outpatient (CLI) | payer MEDICARE, MEDICAID ==
[~2019-11-03] VITALS: Ht 160.2 cm; Wt 78.7 kg
[2019-11-03] VITALS (10 sets, daily range): BP systolic 144–162; BP diastolic 76–89; PULSE 74–76; TEMP 98.2
[~2019-11-03 05:45] MED LIST changes: +LOMOTIL 0.025 M1 TAB PO; +NORVASC 10MG10 MG PO
[2019-11-03] MEDS ORDERED: MILK OF MA400 MG/52 PO (07:36)
[2019-11-03] MEDS ORDERED: ARTIFICIAL TEAR15 M7 OP (07:41)
[2019-11-03] MEDS ORDERED: VOLTAREN GEL 1%1 TU TP (07:42)
[2019-11-03] MEDS ORDERED: NORCO 325 MG-51 TAB PO (07:43)
[2019-11-03] MEDS ORDERED: IMODIUM 2MG CAPS2 MG PO (07:45)
--- NOTE | 2019-11-03 08:15 | NUR ---
ARNOLDO Wilde came to assist with IV start.Pt to procedure.
--- NOTE | 2019-11-03 08:25 | NUR ---
SEE MERGE DOCUMENTATION FOR MEDICATION ADMINISTRATION AND INTRA/POST PROCEDURE SEDATION ASSESSMENTS.
--- NOTE | 2019-11-03 10:59 | NUR ---
Leodan, 2 tabs po per pt request for c/o pain in left leg post procedure.
--- NOTE | 2019-11-03 12:43 | NUR ---
Discharge instructions given to pt.Pt verbalizes understanding.INT removed,catheter tip intact.[facility]Pt escorted out via wheelchair by this nurse.
== END 2019-11-03 13:46 | disposition home or self-care (01) ==
LOC: COL.CAR 05:45
DX: T82.868A Thrombosis due to vascular prosthetic devices, implants and grafts, initial encounter (principal); I12.0 Hypertensive chronic kidney disease with stage 5 chronic kidney disease or end stage renal disease; N18.6 End stage renal disease; Z99.2 Dependence on renal dialysis; Z90.10 Acquired absence of unspecified breast and nipple; Z85.828 Personal history of other malignant neoplasm of skin; Z86.14 Personal history of Methicillin resistant Staphylococcus aureus infection; Z88.5 Allergy status to narcotic agent; Z88.8 Allergy status to other drugs, medicaments and biological substances; Z79.52 Long term (current) use of systemic steroids; Z87.891 Personal history of nicotine dependence
CPT/HCPCS: J1200; J1644; J2250; J3010; J7030; Q9967

== ENCOUNTER 2021-06-08 13:48 | Inpatient (IN) | payer MEDICARE, MEDICAID ==
[~2021-06-08] VITALS: Ht 160 cm; Wt 76.3 kg
[~2021-06-08 13:48] MED LIST changes: +ARTIFICIAL TEAR15 M7 OP; +MILK OF MA400 MG/52 PO; +VOLTAREN GEL 1%1 TU TP
[2021-06-08 17:37] VITALS: BP 137/93; PULSE 110; TEMP 97.9
[2021-06-08 18:26] LABS: BASO # 0.1 K/mm3 (0.0-0.2); BASO % 1.2 % (0.0-2.0); EOS # 0.2 K/mm3 (0.0-0.7); GRAN # 3.5 K/mm3 (1.4-6.5); GRAN % 71.5 % (42.2-75.2); HEMATOCRIT 40.9 % (37.0-47.0); HEMOGLOBIN 12.9 g/dl (12.5-16.0); LYMPH # 0.9 K/mm3 (1.2-3.4); LYMPH % 17.6 % (20.0-51.0); MEAN CELL VOLUME 101 fl (80.0-100.0); MEAN CORPUSCULAR HEMOGLOBIN 32 pg (27-31); MEAN CORPUSCULAR HGB CONC 32 g/dl (33.0-37.0); MEAN PLATELET VOLUME 11.4 fl (7.4-10.4); MONO # 0.3 K/mm3 (0.1-0.6); MONO % 6.5 % (1.7-9.3); PLATELET COUNT 146 K/mm3 (130-400); RED BLOOD COUNT 4.05 M/mm3 (4.10-5.30); REDCELL DISTRIBUTION WIDTH-CV 19.6 % (11.5-14.5)
[2021-06-08 18:47] LABS: ALBUMIN 3.7 gm/dL (3.4-4.8); BILIRUBIN,TOTAL 1.5 mg/dL (0.2-1.2); CALCIUM 8.9 mg/dL (8.4-10.2); CREATININE, serum 4.01 mg/dL (0.57-1.11); TOTAL PROTEIN 6.8 gm/dL (6.2-8.1)
[2021-06-08 20:00] VITALS: BP 132/91; PULSE 109; TEMP 97.5
[2021-06-08 23:49] VITALS: BP 133/83; PULSE 95; TEMP 97.8
[2021-06-09 04:00] VITALS: BP 132/67; PULSE 100; TEMP 98.1
[2021-06-09 07:27] VITALS: BP 124/83; PULSE 81; TEMP 97.6
[2021-06-09 07:53] LABS: BASO # 0.1 K/mm3 (0.0-0.2); EOS # 0.2 K/mm3 (0.0-0.7); EOS % 2.9 % (0.0-4.0); GRAN # 3.5 K/mm3 (1.4-6.5); GRAN % 68.3 % (42.2-75.2); HEMATOCRIT 42.7 % (37.0-47.0); HEMOGLOBIN 13.1 g/dl (12.5-16.0); LYMPH % 18.8 % (20.0-51.0); MEAN CELL VOLUME 104 fl (80.0-100.0); MEAN CORPUSCULAR HEMOGLOBIN 32 pg (27-31); MEAN CORPUSCULAR HGB CONC 31 g/dl (33.0-37.0); MEAN PLATELET VOLUME 11.6 fl (7.4-10.4); MONO # 0.5 K/mm3 (0.1-0.6); MONO % 8.8 % (1.7-9.3); PLATELET COUNT 141 K/mm3 (130-400); RED BLOOD COUNT 4.11 M/mm3 (4.10-5.30); REDCELL DISTRIBUTION WIDTH-CV 19.6 % (11.5-14.5)
[2021-06-09 08:06] LABS: CALCIUM 8.4 mg/dL (8.4-10.2); CREATININE, serum 4.75 mg/dL (0.57-1.11); POTASSIUM 4.7 mmol/L (3.5-4.5)
--- NOTE | 2021-06-09 10:07 | NUR ---
PT ASSESSED. NO COMPLAINTS OF PAIN OR DYPSNEA. NO SIGNS OR SYMPTOMS OF DISTRESS. PT TAKEN TO DIALYSIS.
--- NOTE | 2021-06-09 12:26 | NUR ---
PATIENT TOLERATED HD TX WITH 3.5L OF FLUID REMOVED. NEXT PLANNED HD TX PENDING LABS & ASSESSMENT.
[2021-06-09 12:43] VITALS: BP 132/87; PULSE 78; TEMP 97.9
--- NOTE | 2021-06-09 12:56 | NUR ---
E Marketing Specialist stopped by but patient was at procedure.
--- NOTE | 2021-06-09 15:57 | NUR ---
bag worker met with patient to complete discharge. Patient currently lives at home alone in [place]. She reports to being independent with her ADL's and does not utilize any DME to assist with mobility. Patient has no oxygen needs at home. PCP is Dr. Shahbaz Enriquez in [place] and she uses [facility] in [place] for medications with no cost difficulty. She does get dialysis every M,W,F at [address] in [place]. Patient reports that she does not currently have a DPOA-HC established. Education provided. Patient is and has two children that she doesn't speak with. Patient verbalizes that she would like her nephew Benito Keenan as her agent. 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 Copy placed in the patients chart, original and additional copies provided back to the patient. Discharge plan: Home
[2021-06-09 16:00] VITALS: BP 128/82; PULSE 82
[2021-06-09 20:33] VITALS: BP 110/64; PULSE 86; TEMP 98.1
[2021-06-09 21:22] LABS: COMPLEMENT-C3 97 mg/dL (83-193); COMPLEMENT-C4 15 mg/dL (15-57)
[2021-06-09 23:21] VITALS: BP 120/76; PULSE 81; TEMP 98.3
[2021-06-10 03:45] VITALS: BP 122/71; PULSE 75; TEMP 97.8
[2021-06-10 07:37] VITALS: BP 123/82; PULSE 78; TEMP 99.4
[2021-06-10 07:56] LABS: BASO % 0.4 % (0.0-2.0); GRAN % 77.2 % (42.2-75.2); HEMATOCRIT 41.1 % (37.0-47.0); HEMOGLOBIN 13.1 g/dl (12.5-16.0); LYMPH # 0.8 K/mm3 (1.2-3.4); LYMPH % 15.6 % (20.0-51.0); MEAN CELL VOLUME 101 fl (80.0-100.0); MEAN CORPUSCULAR HEMOGLOBIN 32 pg (27-31); MEAN CORPUSCULAR HGB CONC 32 g/dl (33.0-37.0); MEAN PLATELET VOLUME 11.9 fl (7.4-10.4); MONO # 0.3 K/mm3 (0.1-0.6); MONO % 6.2 % (1.7-9.3); PLATELET COUNT 156 K/mm3 (130-400); RED BLOOD COUNT 4.08 M/mm3 (4.10-5.30); REDCELL DISTRIBUTION WIDTH-CV 18.7 % (11.5-14.5)
[2021-06-10 08:15] LABS: CALCIUM 8.4 mg/dL (8.4-10.2); CREATININE, serum 4.22 mg/dL (0.57-1.11)
--- NOTE | 2021-06-10 08:27 | NUR ---
Scheduled medications given. Shift assessment performed. Patient on RA and denies any pain, discomfort, SOA, or further needs at this time. VSS. Patient A&O. Call light in reach.
[2021-06-10] MEDS ORDERED: NORVASC 10MG10 MG PO (11:26)
[2021-06-10] MEDS ORDERED: PREDNISONE10 MG PO (11:30)
[2021-06-10 12:01] VITALS: BP 128/83; PULSE 79; TEMP 97.3
--- NOTE | 2021-06-10 13:22 | NUR ---
Patient deemed fit for discharge. IV DC'd, catheter intact, no signs of phlebitis. Discharge education/instructions given. All questions answered. Patient denies any pain, discomfort, SOA, or further needs at this time. VSS. patient A&O. Patient escorted from building via wheelchair by [facility] staff. Patient transporting self home.
[2021-06-11 18:26] LABS: C-ANCA 6 U/mL (0-99)
== END 2021-06-10 13:25 | disposition home or self-care (01) | DRG 640 ==
LOC: SURG 13:48 → MEDICAL 15:41
PROVIDERS: Registered Nurse; ADMIT Internal Medicine Nephrology
PROC: 5A1D70Z Performance of Urinary Filtration, Intermittent, Less than 6 Hours Per Day (ICD-10-PCS; principal; 2021-06-09)
DX: E87.70 Fluid overload, unspecified (principal); N18.6 End stage renal disease; N25.81 Secondary hyperparathyroidism of renal origin; I12.0 Hypertensive chronic kidney disease with stage 5 chronic kidney disease or end stage renal disease; R23.3 Spontaneous ecchymoses; D69.6 Thrombocytopenia, unspecified; J44.9 Chronic obstructive pulmonary disease, unspecified; M06.9 Rheumatoid arthritis, unspecified; D63.1 Anemia in chronic kidney disease; G40.909 Epilepsy, unspecified, not intractable, without status epilepticus; I25.10 Atherosclerotic heart disease of native coronary artery without angina pectoris; F32.A Depression, unspecified; E87.5 Hyperkalemia; E83.39 Other disorders of phosphorus metabolism; Z79.891 Long term (current) use of opiate analgesic; Z99.2 Dependence on renal dialysis; Z95.810 Presence of automatic (implantable) cardiac defibrillator; Z85.3 Personal history of malignant neoplasm of breast; Z88.5 Allergy status to narcotic agent
CPT/HCPCS: J7030; J7512

== ENCOUNTER 2021-06-22 16:24 | Observation (INO) | payer MEDICARE, MEDICAID ==
[~2021-06-22] VITALS: Ht 160 cm; Wt 75.4 kg
[~2021-06-22 16:24] MED LIST changes: +PREDNISONE10 MG PO
[2021-06-22 19:00] VITALS: BP 153/112; PULSE 81; TEMP 97.2
[2021-06-23] VITALS (14 sets, daily range): BP systolic 102–140; BP diastolic 68–98; PULSE 60–80; TEMP 96.4–97.8
--- NOTE | 2021-06-23 06:30 | NUR ---
PT DIRECT ADMITTED TO THE MEDICAL FLOOR DURING SHIFT REPORT PER DAYSHIFT RN. PT A&O X 4; VS MOSTLY STABLE, HOWEVER PT'S FIRST B/P WAS 153/112. PHYSICIAN NOTIFIED; O2 RA. PT DENIED CHEST PAIN, GENERAL PAIN, SOB, N,V OR DIZZINESS. PT DID HAVE A BOUT OF DIARRHEA AROUND 0400HRS. PT GIVEN IMODIUM FOR DIARRHEA. PT DID NOT VOICE ANY FARTHER BOUTS OF DIARRHEA THIS SHIFT. ADMISSIONS ASSESSMENT AND MED REC COMPLETE. PT ORIENTED TO ROOM AND HOSPITAL POLICY. POC DISCUSSED WITH PT. PT VERBALIZED UNDERSTANDING. ALL QUESTIONS AND CONCERNS ADDRESSED. PT EXPRESSED NO OTHER NEEDS AT THIS TIME. CALL LIGHT WITHIN REACH.
[2021-06-23 06:59] LABS: BASO # 0.1 K/mm3 (0.0-0.2); BASO % 0.9 % (0.0-2.0); EOS # 0.1 K/mm3 (0.0-0.7); EOS % 1.5 % (0.0-4.0); GRAN # 6.1 K/mm3 (1.4-6.5); GRAN % 74.8 % (42.2-75.2); HEMATOCRIT 40.3 % (37.0-47.0); HEMOGLOBIN 12.9 g/dl (12.5-16.0); LYMPH # 1.2 K/mm3 (1.2-3.4); LYMPH % 15.3 % (20.0-51.0); MEAN CELL VOLUME 102 fl (80.0-100.0); MEAN CORPUSCULAR HEMOGLOBIN 33 pg (27-31); MEAN CORPUSCULAR HGB CONC 32 g/dl (33.0-37.0); MEAN PLATELET VOLUME 12.3 fl (7.4-10.4); MONO # 0.6 K/mm3 (0.1-0.6); MONO % 6.8 % (1.7-9.3); PLATELET COUNT 121 K/mm3 (130-400); RED BLOOD COUNT 3.97 M/mm3 (4.10-5.30); REDCELL DISTRIBUTION WIDTH-CV 18.5 % (11.5-14.5)
[2021-06-23 07:13] LABS: INR 1.2 (0.8-3.0); PROTHROMBIN TIME 13.8 SECONDS (9.7-12.8)
[2021-06-23 07:19] LABS: CALCIUM 7.4 mg/dL (8.4-10.2); CREATININE, serum 7.82 mg/dL (0.57-1.11)
--- NOTE | 2021-06-23 07:25 | NUR ---
Patient taken to the OR
[2021-06-23 07:29] LABS: POTASSIUM 6.1 mmol/L (3.5-4.5)
--- NOTE | 2021-06-23 08:30 | NUR ---
Patient back to room 319 from the OR. A&Ox3. Awake, but drowsy. VSS. IV CDI. Dialysis cath RT femoral, CDI. Post op VS monitored. Call light within reach
--- NOTE | 2021-06-23 13:47 | NUR ---
Patient out of room for dialysis. Unable to complete intake at this time.
--- NOTE | 2021-06-23 14:35 | NUR ---
PATIENT TOLERATED HD TX WITH 3,446 ML OF FLUID REMOVED. NEXT PLANNED HD TX PENDING AM K LEVEL & PATIENT ASSESSMENT.
--- NOTE | 2021-06-23 14:42 | NUR ---
Patient back to room 319 from dialysis. A&Ox3. VSS. IV CDI. Fistula sites CDI. Call light within reach
--- NOTE | 2021-06-23 17:57 | NUR ---
Patient laying in bed watching TV. A&Ox4. VSS. Denies pain, reports not being able to move the left arm. Nurse assessed the left arm ROM and patient was able to squeeze the nurses hand. CMS WNL. IV CDI. Dialysis catheter RT femoral site CDI. Call light within reach. Bed alarm on
[2021-06-24 00:10] VITALS: BP 117/80; PULSE 76; TEMP 97.6
[2021-06-24 05:02] VITALS: BP 131/90; PULSE 78; TEMP 98
[2021-06-24 07:44] VITALS: BP 130/90; PULSE 75; TEMP 97.9
--- NOTE | 2021-06-24 08:00 | NUR ---
Patient sitting up in bed watching TV and finishing up breakfast. A&Ox4. VSS. IV CDI. Dialysis catheter RT femoral CDI. Denies pain and discomfort. Independent with feeds and repositioning. Call light within reach
[2021-06-24 11:10] VITALS: BP 123/92; PULSE 75; TEMP 97.4
[2021-06-24 12:08] LABS: BASO # 0.1 K/mm3 (0.0-0.2); BASO % 0.9 % (0.0-2.0); EOS # 0.1 K/mm3 (0.0-0.7); EOS % 2.2 % (0.0-4.0); GRAN # 4.6 K/mm3 (1.4-6.5); GRAN % 72.6 % (42.2-75.2); HEMATOCRIT 41.7 % (37.0-47.0); HEMOGLOBIN 13.4 g/dl (12.5-16.0); MEAN CELL VOLUME 101 fl (80.0-100.0); MEAN CORPUSCULAR HEMOGLOBIN 32 pg (27-31); MEAN CORPUSCULAR HGB CONC 32 g/dl (33.0-37.0); MEAN PLATELET VOLUME 12.6 fl (7.4-10.4); MONO # 0.6 K/mm3 (0.1-0.6); MONO % 8.8 % (1.7-9.3); PLATELET COUNT 112 K/mm3 (130-400); RED BLOOD COUNT 4.13 M/mm3 (4.10-5.30); REDCELL DISTRIBUTION WIDTH-CV 18.2 % (11.5-14.5)
[2021-06-24 12:22] LABS: CALCIUM 7.4 mg/dL (8.4-10.2); CREATININE, serum 7.25 mg/dL (0.57-1.11); POTASSIUM 5.2 mmol/L (3.5-4.5)
--- NOTE | 2021-06-24 12:57 | NUR ---
[facility] declined donation, waiting on eye bank at this time.
[2021-06-24] MEDS ORDERED: TOPROL XL 50MG50 MG PO (13:35)
--- NOTE | 2021-06-24 13:56 | NUR ---
Report called to MARLENA Mann in [place]
--- NOTE | 2021-06-24 14:55 | NUR ---
Patient transfered by EMS to [facility]. Discharge paperwork and personal belongings with the patient. IV RT Forearm intact. Dialysis catheter RT Femoral site CDI. No further needs expressed
== END 2021-06-24 14:57 | disposition short-term general hospital (02) ==
LOC: MEDICAL 16:24
PROVIDERS: Nurse Practitioner; Surgery; ADMIT Internal Medicine Nephrology
DX: N18.6 End stage renal disease (principal); R06.09 Other forms of dyspnea; D63.1 Anemia in chronic kidney disease
CPT/HCPCS: G0378; J1644; J2250; J2795; J7030

== ENCOUNTER 2021-10-20 13:47 | Emergency (ER) | payer MEDICARE, MEDICAID ==
[~2021-10-20] VITALS: Ht 160 cm; Wt 72.2 kg
[2021-10-20 14:17] VITALS: TEMP 97.9
[2021-10-20 14:41] LABS: BASO # 0.1 K/mm3 (0.0-0.2); BASO % 2.5 % (0.0-2.0); EOS # 0.1 K/mm3 (0.0-0.7); EOS % 2.1 % (0.0-4.0); GRAN # 3.1 K/mm3 (1.4-6.5); GRAN % 59.7 % (42.2-75.2); HEMATOCRIT 40.2 % (37.0-47.0); HEMOGLOBIN 12.4 g/dl (12.5-16.0); LYMPH # 1.1 K/mm3 (1.2-3.4); LYMPH % 22.1 % (20.0-51.0); MEAN CELL VOLUME 106 fl (80.0-100.0); MEAN CORPUSCULAR HEMOGLOBIN 33 pg (27-31); MEAN CORPUSCULAR HGB CONC 31 g/dl (33.0-37.0); MEAN PLATELET VOLUME 10.5 fl (7.4-10.4); MONO # 0.7 K/mm3 (0.1-0.6); PLATELET COUNT 220 K/mm3 (130-400); RED BLOOD COUNT 3.81 M/mm3 (4.10-5.30); REDCELL DISTRIBUTION WIDTH-CV 18.5 % (11.5-14.5)
[2021-10-20] MEDS ORDERED: TOPROL XL 50MG50 MG PO (14:48)
[2021-10-20] MEDS ORDERED: VITAMIND3 5000 PO (14:51)
[2021-10-20 14:59] LABS: ALBUMIN 3.9 gm/dL (3.4-4.8); BILIRUBIN,TOTAL 1.4 mg/dL (0.2-1.2); CALCIUM 9.4 mg/dL (8.4-10.2); CREATININE, serum 5.26 mg/dL (0.57-1.11); POTASSIUM 4.3 mmol/L (3.5-4.5); TOTAL PROTEIN 8.1 gm/dL (6.2-8.1)
[2021-10-20 16:16] VITALS: BP 160/97; PULSE 94
[2021-10-20 17:45] LABS: CLOSTRIDIUM DIFF A/B NEG; CLOSTRIDIUM DIFF A/B INTERP No C.diff present
== END 2021-10-20 16:18 | disposition home or self-care (01) ==
LOC: COL.ER 13:47
PROVIDERS: Emergency Medicine
DX: K62.5 Hemorrhage of anus and rectum (principal); R18.8 Other ascites; R10.84 Generalized abdominal pain; D64.9 Anemia, unspecified; I12.0 Hypertensive chronic kidney disease with stage 5 chronic kidney disease or end stage renal disease; N18.6 End stage renal disease

== ENCOUNTER → 2021-10-25 | Outpatient (CLI) | payer MEDICARE, MEDICAID ==
[~2021-10-25] MED LIST changes: +VITAMIND3 5000 PO
== END ==
LOC: COL.RAD 11:30
DX: G31.9 Degenerative disease of nervous system, unspecified (principal); I67.82 Cerebral ischemia; W19.XXXA Unspecified fall, initial encounter

== ENCOUNTER 2021-11-09 15:17 | Emergency (ER) | payer MEDICARE, MEDICAID ==
[~2021-11-09] VITALS: Ht 160 cm; Wt 72.0 kg
[2021-11-09 15:29] VITALS: TEMP 98.9
[2021-11-09 17:22] VITALS: BP 149/92; PULSE 83
== END 2021-11-09 17:24 | disposition home or self-care (01) ==
LOC: COL.ER 15:17
DX: R51.9 Headache, unspecified (principal); I12.0 Hypertensive chronic kidney disease with stage 5 chronic kidney disease or end stage renal disease; N18.6 End stage renal disease; Z86.69 Personal history of other diseases of the nervous system and sense organs; Z99.2 Dependence on renal dialysis; Z28.310 Unvaccinated for COVID-19
CPT/HCPCS: J1790